=== PATIENT | female | born 1960 | race Caucasian/White ===

== ENCOUNTER 2020-08-11 07:28 | Outpatient (REF) | payer BC, SELFPAY ==
--- NOTE | ~2020-08-11 | MM_ITS ---
EXAMINATION: MM SCREENING DIGITAL BREAST TOMOSYNTHESIS, BILATERAL CLINICAL INFORMATION: Screening. Asymptomatic. The lifetime risk of breast cancer based on the Tyrer-Cuzick Model is 11%. COMPARISON: Mammography: 08/04/2019, 08/06/2018, 07/29/2018, 05/20/2017 TECHNIQUE: Digital breast tomosynthesis is performed in both the craniocaudal and mediolateral oblique views along with computer-aided detection (CAD). Synthesized 2D images are generated from the tomosynthesis. FINDINGS: There are scattered areas of fibroglandular density (ACR BI-RADS breast composition Category b). There is a nodular parenchymal pattern similar to prior exams. There is no developing density or interval mass or architectural abnormality. No abnormal calcifications the axilla and skin contours are unremarkable. MM/MM tomosynthesis screening BI IMPRESSION: No significant changes from prior studies. ASSESSMENT: BI-RADS 2: Benign RECOMMENDATION: Routine annual mammography screening. This patient's information was entered into a reminder system with a target due date for their next mammogram.
== END 2020-08-11 07:29 | disposition home or self-care (01) ==
LOC: HO.MAMMO 07:28
PROVIDERS: PCP Family Medicine; Visit Provider Internal Medicine
DX: Z12.31 Encounter for screening mammogram for malignant neoplasm of breast (principal)
CPT/HCPCS: 77063; 77067

== ENCOUNTER 2021-09-28 07:22 | Outpatient (REF) | payer BC, SELFPAY ==
--- NOTE | ~2021-09-28 | MM_ITS ---
EXAMINATION: MM SCREENING DIGITAL BREAST TOMOSYNTHESIS, BILATERAL CLINICAL INFORMATION: Screening. Asymptomatic. The lifetime risk of breast cancer based on the Tyrer-Cuzick Model is 10%. COMPARISON: Mammography: 08/11/2020, 08/04/2019, 08/06/2018, 07/29/2018 TECHNIQUE: Digital breast tomosynthesis is performed in both the craniocaudal and mediolateral oblique views along with computer-aided detection (CAD). Synthesized 2D images are generated from the tomosynthesis. FINDINGS: There are scattered areas of fibroglandular density (ACR BI-RADS breast composition Category b). Multinodular parenchymal pattern is similar to prior exam. There is no interval dominant nodule or significant mass or architectural abnormality. No abnormal calcifications. The axilla and skin contours are unremarkable. MM/MM tomosynthesis screening BI IMPRESSION: No mammographic evidence of malignancy. ASSESSMENT: BI-RADS 2: Benign RECOMMENDATION: Routine annual mammography screening. This patient's information was entered into a reminder system with a target due date for their next mammogram.
== END 2021-09-28 07:23 | disposition home or self-care (01) ==
LOC: HO.MAMMO 07:22
PROVIDERS: PCP Family Medicine; Visit Provider Family Medicine
DX: Z12.31 Encounter for screening mammogram for malignant neoplasm of breast (principal)
CPT/HCPCS: 77063; 77067

== ENCOUNTER 2022-10-04 07:28 | Outpatient (REF) | payer BC, SELFPAY ==
--- NOTE | ~2022-10-04 | MM_ITS ---
EXAMINATION: MM SCREENING DIGITAL BREAST TOMOSYNTHESIS, BILATERAL CLINICAL INFORMATION: Screening. Asymptomatic. The lifetime risk of breast cancer based on the Tyrer-Cuzick Model is 9.5%. COMPARISON: Mammography: 09/28/2021 and studies dating back to 11/07/2010. TECHNIQUE: Digital breast tomosynthesis is performed in both the craniocaudal and mediolateral oblique views along with computer-aided detection (CAD). Synthesized 2D images are generated from the tomosynthesis. FINDINGS: There are scattered areas of fibroglandular density (ACR BI-RADS breast composition Category b). There are no significant new masses, abnormal calcifications, or other abnormalities. There is waxing and waning of circumscribed densities bilaterally consistent with cysts as had been seen previously on ultrasound. MM/MM tomosynthesis screening BI IMPRESSION: No significant changes from prior exam. ASSESSMENT: BI-RADS 2: Benign RECOMMENDATION: Routine annual mammography screening. This patient's information was entered into a reminder system with a target due date for their next mammogram.
== END 2022-10-04 07:29 | disposition home or self-care (01) ==
LOC: HO.MAMMO 07:28
PROVIDERS: PCP Family Medicine; Referring Provider Nurse Practitioner Adult Health; Visit Provider Family Medicine
DX: Z12.31 Encounter for screening mammogram for malignant neoplasm of breast (principal)
CPT/HCPCS: 77063; 77067

== ENCOUNTER 2023-07-22 08:34 | Outpatient (AMB) | payer BC, SELFPAY ==
[2023-07-22 08:50] VITALS: BP 128/80; PULSE 66; O2SAT 98; BMI 35.5
--- NOTE | 2023-07-22 08:50 | AM.OFFWIN_ITS ---
Intake Vital Signs 3 07/22/23 08:50 Height 5 ft 1 in Weight 188 lb BMI 35.5 BP 128/80 Blood Pressure Location Lt brachial Position Sitting Pulse 66 Pulse Source Pulse Oximeter Pulse Oximetry (%) 98 Intake Visit Reasons: EST/rash on side of face([phone]) Patient Tobacco Use Status: Never used Tobacco Allergies No Known Allergies Allergy (Verified 07/22/23 08:50) Medication List - Last Reconciled 07/22/23 by Felicia Duncan MD budesonide-formoterol 80-4.5 mcg/actuation (Symbicort) 2 puffs inhalation BID levothyroxine mcg PO omeprazole 40 mg PO BID vedolizumab (Entyvio) 300 mg IV Q8W Do you need a note to return to daycare/school/sports/work: Yes HPI EST/rash on side of face([phone]) 2 HPI0 Details Patient is 62-year-old female came in today to be evaluated for rash right side of her nose Which started about 5-7 days ago patient is not sure Her eye is fine, there is no pain days no tearing there is no photophobia however she feels it is little bit spray drier than usual On examination patient has developed a shingles rash which is located over V1 branch of trigeminal nerve Explained to patient that it can involve her eye, she already have an eye doctor I would recommend to make the appointment and have a follow-up Meanwhile I am treating her with famciclovir for 7 days and prednisone 20 mg once a day for 5 days PFSH Social History Patient Tobacco Use Status: Never used Tobacco Review of Systems Const All systems reviewed & are unremarkable except as noted in HPI and below Physical Exam Vital Signs: Last Vital Signs Pulse 66 07/22/23 08:50 BP 128/80 07/22/23 08:50 Pulse Ox 98 07/22/23 08:50 BMI result Body Mass Index 35.5 Const General: no acute distress Orientation/consciousness: patient oriented x3 HEENT Head images: 2 1. Herpes zoster rash Eyes Other: Eye exam is normal Resp Effort & Inspection: normal respiratory effort and able to speak in complete sentences Auscultation: clear to auscultation bilaterally Cardio Other: S1 S2 Neuro General: patient oriented x3 Psych Mental Status: mental status grossly normal Assessment & Plan Assessment & Plan (1) Herpes zoster: Code(s): B02.9 - Zoster without complications Qualifiers: Herpes zoster complications: unspecified herpes zoster complication Qualified Code(s): B02.8 - Zoster with other complications Plan Patient is 62-year-old female came in today to be evaluated for rash right side of her nose Which started about 5-7 days ago patient is not sure Her eye is fine, there is no pain days no tearing there is no photophobia however she feels it is little bit spray drier than usual On examination patient has developed a shingles rash which is located over V1 branch of trigeminal nerve Explained to patient that it can involve her eye, she already have an eye doctor I would recommend to make the appointment and have a follow-up Meanwhile I am treating her with famciclovir for 7 days and prednisone 20 mg once a day for 5 days Medications: New 2 famciclovir 500 mg PO Q8H 21 tabs 0RF 7 days Changed 2 From prednisone 40 mg (2 x 20 mg) PO DAILY 5 tabs 0RF To prednisone 20 mg PO DAILY 5 tabs 0RF 5 days Coding Level of Care Code Est Pt Level 4 (02606) Diagnoses Herpes zoster with complication B02.8 Herpes zoster complications: unspecified herpes zoster complication
== END 2023-07-22 09:41 | disposition home or self-care (01) ==
PROVIDERS: PCP Family Medicine; Visit Provider Internal Medicine
DX: B02.8 Zoster with other complications (principal)
CPT/HCPCS: 99214

== ENCOUNTER 2023-10-17 07:27 | Outpatient (REF) | payer BC, SELFPAY ==
--- NOTE | ~2023-10-17 | MM_ITS ---
EXAMINATION: MM SCREENING DIGITAL BREAST TOMOSYNTHESIS, BILATERAL CLINICAL INFORMATION: Screening. Asymptomatic. COMPARISON: Mammography: This study is compared with prior exams dating back to 2017. TECHNIQUE: Digital breast tomosynthesis is performed in both the craniocaudal and mediolateral oblique views along with computer-aided detection (CAD). Synthesized 2D images are generated from the tomosynthesis. FINDINGS: There are scattered areas of fibroglandular density (ACR BI-RADS breast composition Category b). There are no significant masses, abnormal calcifications, or other abnormalities. There are 2 tiny calcified fibroadenomas in the left breast and one in the right breast. These are benign. MM/MM tomosynthesis screening BI IMPRESSION: No mammographic evidence of malignancy. ASSESSMENT: BI-RADS BI-RADS 2 - Benign Findings RECOMMENDATION: Routine annual mammography screening. 1 year F/U This examination should not preclude the clinical evaluation of a suspicious palpable abnormality. This patient's information was entered into a reminder system with a target due date for their next mammogram.
== END 2023-10-17 07:28 | disposition home or self-care (01) ==
LOC: HO.MAMMO 07:27
PROVIDERS: PCP Family Medicine; Visit Provider Family Medicine
DX: Z12.31 Encounter for screening mammogram for malignant neoplasm of breast (principal)
CPT/HCPCS: 77063; 77067

== ENCOUNTER → 2023-10-17 07:30 | Outpatient (BNV) | payer BC, SELFPAY | PROVIDERS: PCP Family Medicine; Visit Provider Radiology Diagnostic Radiology | DX: Z12.31 Encounter for screening mammogram for malignant neoplasm of breast (principal) | CPT/HCPCS: 77063; 77067 ==

== ENCOUNTER 2024-11-05 07:22 | Outpatient (REF) | payer MEDICARE, SELFPAY ==
--- OUTSIDE RECORDS SUMMARY | 2024-11-05 07:24 | XMS_ITS | Data Portability ---
Author Organization [facility], , [facility] Address [address] [place] [address] Assessment Encounter Date Assessment Date Assessment LastModified by Organization Details LastModified Time 09/26/2017 09/26/2017 Pt with dx of collagenous colitis; hx diarrhea. Referred by gastroenterolog ist. Other medical issues: few. Looking for help with diet- variety and to minimize symptoms. Had lost weight previously following [employer] diet; weight gain past year or 2- changes in diet with the current medical issue- regained the weight. Nutrition diagnosis: altered GI function r/t dx lymphocytic colitis (diarrhea) AEB pt's description of symptoms, especially if she consumes a higher fiber diet. [email or web address] Not available 09/26/2017 13:10:22 11/21/2017 11/21/2017 Recent colonoscopy: no colitis, has some diverticular disease. Diarrhea: about 3x/week. Per pt: a week ago had bad diarrhea for an hour or 2, then doesn't go again for 2-3 days (typical pattern for her). She is unable to pinpoint triggers; avoids raw veggies (might have occasional small salad). Quality of life impacted by bowel issues. Now has a referral for a second opinion at [facility] in [place]. Follows Low FODMAPs diet; avoids raw vegetables and the only fruit she eats is a banana most days. Eats mostly gluten free diet, but not 100%. Doesn't believe that gluten is her issue, though. There is a possibility that she does not digest fats well, and that could be contributing to the diarrhea; puts butter: on all veggies, baked potato; they grill meats, but some of it is higher fat; ate a hot dog the other day; 24 hours after having nachos with some sour cream she had diarrhea. Wonders if she has an allergy to nickel (per her brother in law, who is a pharmacist and researcher, she appears to have some of the symptoms of nickel allergy or overload) She plans to pursue testing for this. In the mean time, she plans to follow a stricter lower fat diet to see if fat avoidance helps in any way. msobil Not available 11/21/2017 13:14:19 Plan of Treatment Reminders Order Date Submit Date Provider Last Modified By Organization Details Last Modified Time Details Appointments None record ed. Lab None record ed. Referral None record ed. Procedures None record ed. Surgeries None record ed. Imaging None record ed. Medication Orders None record ed. Patient TargetsNo targets recorded. Patient Instructions Encounter Date Encounter Id Patient Instructions Last Modified By Organization Details Last Modified Time 09/26/2017 [id number] We discussed man y things today: - intro discussion about reducing inflammation; - lower fiber diet - other dietary approaches to managing symptoms: no caffeine, spicey foods, or high fat foods; limit fiber- cooked veg only. Fruit- you may do better with cooked fruits (i.e. canned). Avoid artificia sweeteners. Consider gluten and casein (dairy) free. Avoid sugar and fructose. Small frequent meals. [email or web address] Not available 09/26/2017 13:08:25 GOALS: - food an d symptoms diary; discuss findings with RD (email?) - omega 3 fish oil (Justin, Spectrum and [place] [employer] are all good brands) - speak with your PCP about supplements: your diet is low in calcium, may need to have Vit D levels checked; consider a multivitamin; consider calcium supplementation. Magnesium? - read/try to follow Low FODMAPs diet. Read The [employer] AID (anti-inflammator y diet) website for ideas. - consider getting a Low FODMAPs diet cookbook (Dummies and Idiot's editions available)- recipes may help increase variety. - granola and other bars: read labels for: fructose (honey or hfcs),, fiber (inulin or chicory root). - hydration (water) - do you have any indoor equipment like treadmill or eliptical? perhaps move your exercise indoors if you cannot exercise outdoors right now. follow up in about 5 weeks. msobil Not available 09/26/2017 13:11:11 11/21/2017 [id number] PLAN/GOALS: - limit dietary fats: reduce/eliminate butter; choose only lean proteins; blot oil off of sauteed veggies; avoid tortilla chips, hot dogs, etc. - continue food/symptoms journal - send RD any past lab results that you feel are pertinent. - continue with gluten free, lower fiber diet. follow up in approx 5-6 weeks. msobil Not available 11/21/2017 13:15:02 Reason for Referral None Reported. Results Created Date Observation Date Name Description Value Unit Range Abnormal Flag Note LastModifiedBy Organization Detail LastModifiedTime Result Notes None recorded. Problems Name Problem SNOMED Code Status Onset Date Resolution Date Notes Provider Name and Address Organization Details Recorded Time Collagenous colitis 31679424 Active Sonya Alonzo RDN, JOSÉ MIGUEL, [address], [address], [facility] 8 09:33:25 Problem Notes None recorded. Procedures Surgical History Date Name Laterality Status Provider Name and Address Organization Details Recorded Time 8 [place] - Colonoscopy completed Junior Lopez MD [address] [place] [address], [phone], [facility] 10/30/2017 08:33:08 6 T[place] - Colonoscopy completed Junior Lopez MD [address] [place] [address], [phone], [facility] 12/26/2015 08:59:36 6 Tassoni - EGD completed Junior Lopez MD [address] [place] [address], [phone], [facility] 12/26/2015 09:00:59 Imaging Results None recorded. Procedure Notes None recorded. Medical Equipment None Reported. Allergies No known drug allergies Medications Name Sig Start Date Stop Date Status Note LastModified by Organization Details LastModified Time ranitidine 300 mg tablet active Not Available Not Available Not Available prochlorperazine maleate 10 mg tablet active Not Available Not Available Not Available oxycodone-acetamin ophen 5 mg-325 mg tablet active Not Available Not Available Not Available Gentle Laxative (bisacodyl) 5 mg tablet,delayed release active Not Available Not Available Not Available budesonide DR - ER 3 mg capsule,delayed,ex tended release active Not Available Not Availab le Not Available Ventolin HFA 90 mcg/actuation aerosol inhaler active Not Available Not Availa ble Not Available Estrace 0.01% (0.1 mg/gram) vaginal cream active Not Available Not Available Not Available cyclobenzaprine 5 mg tablet active Not Available Not Available No t Available cholestyramine (with sugar) 4 gram powder for susp in a packet active Not Available Not Avail able Not Available diclofenac 1 % topical gel active Not Available Not Available Not Available GaviLyte-G 236 gram-22.74 gram-6.74 gram-5.86 gram oral solution active Not Available Not Availabl e Not Available PreviDent 5000 Enamel Protect 1.1 %-5 % dental paste active Not Available Not Carol ilable Not Available Vitals Date Recorded Body weight Body mass index (BMI) Body height Provider Name and Address Organization Details Last Updated DateTime 09/26/2017 57807.95 g 33 kg/m2 154.94 cm Althea Alonzo RDN, LDN, [facility] [address] [place] [address] 09/26/2017 09:40:33 Date Recorded Body height Provider Name an d Address Organization Details Last Updated DateTime 11/21/2017 154.94 cm Althea Alonzo RDN, LDN, [facility] [address] [place] [address] 11/21/2017 09:41:34 Social History None recorded. Functional Status None recorded. Mental Status None recorded. Family History Nothing Reported. Medical History No medical history recorded. Gynecological HistoryNo gynecological history recorded. Obstetrics History GPAL:G 0 P 0 0 0 0 Past Encounters Encounter ID Performer Location Encounter Start Date Encounter Closed Date Diagnosis/Indication Diagnosis SNOMED-CT Code Diagnosis ICD10 Code Diagnosis Note [id number] Junior Lopez MD [facility], [address] [address] 12/26/2015 07:21:26 12/26/2015 14:36:09 [id number] Althea Alonzo RDN, LDN, [facility] [address] 09/26/2017 09:11:39 09/30/2017 08:26:37 Collagenous colitis 62450118 K52.624 [id number] Junior Lopez MD [facility], [address] [address] 10/30/2017 07:11:21 10/30/2017 12:07:50 [id number] Althea Alonzo RDN, LDN, [facility] [address] 11/21/2017 09:18:58 12/03/2017 09:28:48 Collagenous colitis 92669533 K52.831 Health Concerns Section Related Observation LastModified by Organization Detai ls LastModified Time None Recorded Concern Status LastModified by Organization Details LastModified Time None Recorded Advance Directives Directive None Recorded Payers Encounter Date Sequence Insurance Name Policy Number Policy Parisi Covered Member ID Parisi Member ID Guarantor Name 12/26/2015 1 [place] [id number] Omari Leggett [id number] Berengere Tardif-Ablic ki 09/26/2017 1 [place] [id number] Omari Leggett [id number] Berengere Tardif-Ablic ki 10/30/2017 1 [place] [id number] Omari Leggett [id number] Berengere Tardif-Ablic ki 11/21/2017 1 [place] [id number] Omari Leggett [id number] Berengere Tardif-Ablic ki Notes Date Note Type Note Provider Name and Address Organization Details Recorded Time 09/26/2017 text/html Nutrition Encoun ter updatedReported bypatient.Patient HistoryPatient chief nutritional complaint: (lymphocytic colitis) Nutition/dietarySee scanned images for Diet Intake Summary (3 meals; plain food); Diet Experience/subjective : (it has been very difficult- I have to be careful when I eat- I don't know when the diarrhea will strike, and have to be careful when away from home.); Knowledge/Beliefs/Att itudes: (avoided breakfast this a.m. because I had the apt here.); food preferences: (salads, whole grains, raw fruits and vegetables. Feels she gained weight d/t not being able to have these foods) Recent Lab testsLab results reviewed with patient and target goals discussed (no labs abailable) Physical Activity habitsenjoys walking but unable to do this now because she might have diarrhea when away from home Althea Alonzo RDN, JOS[facility] MIGUEL, [address], [address], [facility] 09/26/2017 13:12:41 11/21/2017 text/html Nutrition Encoun ter updatedReported bypatient.Patient HistoryPatient chief nutritional complaint: (chronic diarrhea) Nutition/dietarySee scanned images for food diary (kept one but didn't bring with her today); Food Avoidance/Aversions: (spicey foods; alcohol; gluten) Althea Alonzo RDN, JOSÉ MIGUEL, [address], [address], [facility] 11/21/2017 13:16:08 OBGyn Episode No OBEpisode recorded.
== END 2024-11-05 07:23 | disposition home or self-care (01) ==
LOC: HO.MAMMO 07:22
PROVIDERS: PCP Family Medicine; Visit Provider Family Medicine
DX: Z12.31 Encounter for screening mammogram for malignant neoplasm of breast (principal)
CPT/HCPCS: 77063; 77067

== ENCOUNTER → 2024-11-05 07:30 | Outpatient (BNV) | payer MEDICARE, SELFPAY | PROVIDERS: PCP Family Medicine; Visit Provider Internal Medicine | DX: Z12.31 Encounter for screening mammogram for malignant neoplasm of breast (principal) | CPT/HCPCS: 77063; 77067 ==

== ENCOUNTER 2025-02-07 09:39 | Outpatient (REF) | payer MEDICARE, SELFPAY ==
[2025-02-07 14:53] LABS: Chlamydia pneumoniae PCR Not Detected (Not Detect.); Coronavirus 229E PCR Not Detected (Not Detect.); Coronavirus HKU1 PCR Not Detected (Not Detect.); Coronavirus NL63 PCR Not Detected (Not Detect.); Coronavirus OC43 PCR Not Detected (Not Detect.); RSV PCR Not Detected (Not Detect.); Rhino/Enterovirus PCR Detected (Not Detect.)
[2025-02-07 15:29] LABS: SARS-CoV-2 PCR Not Detected (Not Detect.)
[2025-02-07 15:30] LABS: Influenza A H1 PCR Not Detected (Not Detect.); Influenza A H1-2009 PCR Not Detected (Not Detect.); Influenza A H3 PCR Not Detected (Not Detect.)
== END 2025-02-07 09:40 | disposition home or self-care (01) ==
LOC: HO.LAB 09:39
PROVIDERS: PCP Family Medicine; Visit Provider Physician Assistant
DX: J06.9 Acute upper respiratory infection, unspecified (principal)
CPT/HCPCS: 87633; 99202

== ENCOUNTER 2025-02-07 09:39 | Outpatient (AMB) | payer MEDICARE, SELFPAY ==
--- OUTSIDE RECORDS SUMMARY | 2025-02-07 10:14 | XMS_ITS | Patient Health Record ---
[facility] Address [address] [place] [address] Care Team Providers Care Supervisor Blood Name Role Phone Tracy SHELL, Kb Primary Care Provider Unavail able Karrie Lees Unavailable [phone] Reason For Referral No Information Social History Tobacco Use: Social History Observation Description Date Details (start date - stop date) Never Smoker NA - NA Tobacco Use/Smoking Question Answer Notes Are you a: nonsmoker Additional Findings: Tobacco Non-User Current no n-smoker Alcohol Screen Question Answer Notes Did you have a drink containing alcohol in the p ast year? No Points 0 Interpretation Negative Tobacco use other than smoking: Question Answer Notes Are you an other tobacco user? No Plan Of Treatment Pending Test Test Name Order Date X ray : Foot, right 3V 04/28/2019 Insurance Providers Payer Name Payer Address Payer Phone Subscriber Number Group Number Insured Name Patient Relationship to Insured Coverage Start Date Coverage End Date [facility] [address] [place] [address] [phone] [id number] [place]patricia Omari Spouse - patient is the spouse of the insured 8 Medical (General) History Medical History History ICD Code Back,Hip,and Knee pain Measles Mumps Surgical History Surgery Date(Month/Year) tonsillectomy 1968 section 1996 D&C 1995
--- OUTSIDE RECORDS SUMMARY | 2025-02-07 10:14 | XMS_ITS | Clinical Summary ---
Author Organization 175 [facility] Address [address] [place] [address] Phone Care Team Providers Care Outsole Molder Name Role Phone Siddharth Ruiz MD Primary Care Provider [phone] Surgical History Surgery Date Site/Laterality Comments SECTION PROCEDURE: HISTORICAL DELIVERY TONSILLECTOMY PROCEDURE: HISTORICAL TONSILLECTOMY OTHER SURGICAL HISTORY PROCEDURE: ---- OTHER ----; COMMENT: laparoscopy for infertility eval COLONOSCOPY 11/06/09 PROCEDURE: HISTORICAL COLONOSCOPY; COMMENT: hemorrhoids; repeat in ten years OTHER SURGICAL HISTORY 2004 PROCEDURE: ---- OTHER ----; COMMENT: rosales allen ESOPHAGOGASTRODUODENOSCOPY 05/14/13 PROCEDURE: [place] ESOPHAGOGASTRODUODENOSCOPY TRANSORAL DIAGNOSTIC; COMMENT: normal, with normal duodenal biopsies Medical History Medical History Date Comments NUD (nonulcer dyspepsia) 08/16/2013 DX:NUD (nonulcer dyspepsia) Seasonal allergies 06/15/2012 DX:Seasonal a llergies Palpitations 03/25/2009 DX:Palpitations; COMMENT: Dr. Garrido; propranolol; pt sts SVT. Propranolol had been very helpful. Osteopenia 11/20/2011 DX:Osteopenia; C OMMENT: 11/01; minimal (spine and hip normal, fem neck -1.4) Obesity (BMI 30.0-34.9) 03/31/2009 DX:Obesi ty (BMI 30.0-34.9) Lymphocytic colitis 01/03/2016 DX:Lymphocyt ic colitis; COMMENT: [place] 01/05. Gluten and lactose intolerance as well. GI in [place] Impaired fasting glucose 04/18/2016 DX:Impa ired fasting glucose IBS (irritable bowel syndrome) 03/31/2009 D X:IBS (irritable bowel syndrome); COMMENT: EGD benign 05/05 Hematuria 03/25/2009 DX:Hematuria; CO MMENT: [facility] - Dr Perez; cystoscopy normal; cytology x3 normal; CT normal; they are following pt Dyspnea 10/14/2010 DX:Dyspnea; COMM ENT: PFT 10/01: Mild obs defect with reversibility; Dr Xavier Family History Medical History Relation Name Comments Colon cancer Aunt >50 Coronary artery disease Brother Coronary artery disease Father Prostate cancer Father Coronary artery disease Mother silvano y age Hypertension Mother Thyroid disease Mother Pancreatic cancer Uncle 1 Colon cancer Uncle 2 >50 Diabetes Neg Hx Relation Name Status Comments Aunt Brother Father Mother Uncle 1 Uncle 2 Social History Tobacco Use Types Packs/Day Years Used Date Smoking Tobacco: Never Smokeless Tobacco: Never Alcohol Use Standard Drinks/Week Comments Yes 0 (1 standard drink = 0.6 oz pur e alcohol) Comments Unknown Sex and Gender Information Value Date Recorded Sex Assigned at Not on file Legal Sex Female 7:55 AM EST Gender Identity Not on file Sexual Orientation Not on file Obstetrics History Plan of Treatment Upcoming Encounters Date Type Department Care Team ([facility] st Contact Info) Description 03/31/2025 8:45 AM EDT Office Visit Orthopedic Surgery - [place] [address] [id number] Roberth Almanzar, DPM [address] [address] Health Maintenance Due Date Last Done Comments Breast Cancer Screening 1960 Cervical Cancer Screening: Pap Smear 08/20/1980 Pneumococcal Vaccine: 50+ Years (1 of 1 - PCV) 08/20/2009 Zoster Vaccines (1 of 2) 08/20/2009 DTaP,Tdap,and Td Vaccines (2 - Td or Tdap) 01/09/2020 01/08/2010 COVID-19 Vaccine (1 - season) 2024 Depression Screening 06/23/2024 Colorectal Cancer Screening: Colonoscopy 01/25/2025 Falls Risk Assessment 01/25/2025 Hepatitis C Screening 01/25/2025 Medicare Annual Wellness Visit 01/25/2025 Osteoporosis Screening (Bone Density Screening) 01/25/2025 Social Influencers of Health Screening 01/25/2025 Influenza Vaccine (#1) 2025 8, 05/24/2017, 04/08/2016, Additional history exists RSV Immunization Adult Patients (1 - 1-dose 75+ series) 08/20/2034 HIB Vaccines Aged Out No longer eligi ble based on patient's age to complete this topic HPV Vaccines Aged Out No longer eligi ble based on patient's age to complete this topic Hepatitis A Vaccines Aged Out No long er eligible based on patient's age to complete this topic Hepatitis B Vaccines Aged Out No long er eligible based on patient's age to complete this topic IPV Vaccines Aged Out No longer eligi ble based on patient's age to complete this topic MMR Vaccines Aged Out No longer eligi ble based on patient's age to complete this topic Meningococcal ACWY Vaccine Aged Out N o longer eligible based on patient's age to complete this topic Meningococcal B Vaccine Aged Out No l onger eligible based on patient's age to complete this topic RSV Immunization Patients Under 20 months Aged Out No longer eligible based on patient's age to complete this topic Varicella Vaccines Aged Out No longer eligible based on patient's age to complete this topic Insurance BLUE CROSS - [place]IC[place]ANT[place] Care Teams Outsole Molder Relationship Specialty Start Date End Date Siddharth Ruiz MD [facility] [address] [place] [address] PCP - General Family Medicine 01/25/25
--- OUTSIDE RECORDS SUMMARY | 2025-02-07 10:14 | XMS_ITS | Clinical Summary ---
Author Organization [facility] Address [address] [facility] [address] [place] [address] Phone Care Team Providers Care Senior Scientist Name Role Phone Kb Molina MD Unavailable [phone] Siddharth Ruiz MD Primary Care Provider + Maria E Perez MD Unavailable [phone] Allergies No known active allergies Medications ALBUTEROL INHL Inhale into the lungs as needed. Active fluticasone propionate (FLONASE) 50 mcg/actuation nasal spray 1 spray by Nasal route daily as needed. Active levothyroxine (SYNTHROID, LEVOTHROID) 50 MCG tablet Take 75 mcg by mouth every morning. Active omeprazole (PRILOSEC) 40 MG capsule 2 (two) times a day. 3 Active vedolizumab (ENTYVIO) 300 mg SolR injection See Instructions, 300 mg IV Infusion Every 4 weeks, 0 Refills, Maintenance, 04/10/22 10:10:00 EDT, Partial fill upon patient request if the prescription is for a schedule II opioid drug. 2 Active hyoscyamine (LEVSIN SL) 0.[address] 1 tablet (0.125 mg total) under the tongue every 4 (four) hours as needed for cramping (specific location in comments). 30 tablet 1 5 Active cholecalcifero l (VITAMIN D3) 4,000 unit tablet Take by mouth daily. Active ergocalciferol (DRISDOL) 50,000 unit capsule Take 1 capsule by mouth once a week. 4 025 Discontin ued(No longer taking) Active Problems Problem Noted Date Diagnosed Date Microscopic colitis 03/01/2021 Motion sickness 01/08/2021 PONV (postoperative nausea and vomiting) 021 GERD (gastroesophageal reflux disease) 1 Encounters Date Type Department Care Team Description 02/02/[address] [facility] [address] [address] Connie Voss, RACHEL Labs 01/28/2025 9:[address] [facility] [address] [address] Earlene Pacheco PA-C Microscopic colitis, unspecified microscopic colitis type (Primary Dx); Vitamin D deficiency, unspecified; Fatigue, unspecified type 01/20/[address] [facility] [address] [address] Shelbi Mendes RN 01/03/[address] [facility] [address] [address] Connie Voss, RN Labs from Last 3 Months Immunizations Immunization Administration Dates Next Due COVID-19 (Pre-04/14) Pfizer Vaccine, mRNA, PF Social History Tobacco Use Types Packs/Day Years Used Date Smoking Tobacco: Never Smokeless Tobacco: Never Alcohol Use Standard Drinks/Week Comments Yes 0 (1 standard drink = 0.6 oz pur e alcohol) Education Answer Date Recorded Are you interested in more education? Not on farhad e 10/18/2022 Are you concerned about learning? Not on file 10/18/2022 No 10/18/2022 No 10/18/2022 Digital Access Answer Date Recorded No 11/18/2022 No 11/18/2022 Reliable internet access at home? Not on file 11/18/2022 Device with a working camera? Not on file Intimate Partner Violence Answer Date R ecorded Are you denied basic needs s uch as food, clothing, or medical care? No 04/21/2023 In the past 12 months have y ou been in a relationship with a person who hurts, threatens, or tries to control you? No 04/21/2023 Are you denied basic needs s uch as food, clothing, or medical care? No 04/21/2023 In the past 12 months have y ou been in a relationship with a person who hurts, threatens, or tries to control you? No 04/21/2023 Comments No Sex and Gender Information Value Date Recorded Sex Assigned at Female 01/19/2021 11:43 AM EDT Legal Sex Female 9:49 PM EDT Gender Identity Female 01/19/2021 11:43 AM EDT Sexual Orientation Straight 01/19/2021 11 :43 AM EDT Last Filed Vital Signs Vital Sign Reading Time Taken Comments Blood Pressure 149/84 09/20/2024 10:06 AM EDT Pulse 70 09/20/2024 10:06 AM EDT Temperature 36.6 C (97.9 F) 09/20/2024 10:06 AM EDT Respiratory Rate 14 04/21/2023 12:30 PM EDT Oxygen Saturation 97% 09/20/2024 10:06 AM EDT Inhaled Oxygen Concentration - - Weight 89 kg (196 lb 1.6 oz) 09/20/2024 10:06 AM EDT Height 154.9 cm (5' 1 ) 04/21/2023 10:48 AM EDT Body Mass Index 37.05 04/21/2023 10:48 AM EDT Plan of Treatment Upcoming Encounters Date Type Department Care Team (Late st Contact Info) Description 06/09/2025 8:[address] [facility] [address] [facility] 9th [place] [address] Luis Carlos Berrios, CRISTEL, MPH [address] [address] [email or web address] Health Maintenance Due Date Last Done Comments LIPID PANEL 1960 TSH LEVEL 1960 DEPRESSION SCREENING 1971 HEPATITIS C SCREENING 08/20/1977 HIV ONE-TIME SCREENING (18-65 YEARS) 08/20/1977 MAMMOGRAM 1999 COLOGUARD 2004 FIT TEST 2004 FOBT 2004 SIGMOIDOSCOPY 2004 VIRTUAL COLONOSCOPY 2004 RSV VACCINE (1 - Risk 60-74 years 1-dose series) 2019 ZOSTER VACCINES (2 of 2) 07/28/2020 06/02/2020, 05/23 PNEUMOCOCCAL VACCINES (50+ years) (2 of 2 - PCV) 02/28/2021 02/29/2020 COVID-19 VACCINE (5 - 2023- season) 2024 06/06/2021, 05/05/2021, 08/11/2020, Additional history exists OSTEOPOROSIS SCREENING INITIAL (ONE-TIME) 08/20/2024 SCREENING FOR DIABETES 07/09/2027 , 04/28/2024, 01/23/2024, Additional history exists Adult Td,Tdap Booster 04/10/2032 04/10/2022, 010 COLONOSCOPY 04/21/2033 04/21/2023, 01/08/2021 COLORECTAL CANCER SCREENING 04/21/2033 SMOKING STATUS SCREENING (Once After 26 Yrs) Completed 01/28/2025 HEPATITIS A VACCINES Aged Out No long er eligible based on patient's age to complete this topic HIB VACCINES Aged Out No longer eligi ble based on patient's age to complete this topic MENINGOCOCCAL VACCINES (ACWY) Aged Out No longer eligible based on patient's age to complete this topic MENINGOCOCCAL VACCINES (B) Aged Out N o longer eligible based on patient's age to complete this topic Medical Devices Not on file Procedures Procedure Name Priority Date/Time Associated Diagnosis Comments OUTSIDE LAB 01/10/2025 OUTSIDE LAB 01/03/2025 OUTSIDE LAB 12/31/2024 EXTERNALLY RESULTED RHEUMATOLOGY LABS Routine 12/27/2024 EXTERNALLY RESULTED CHEMISTRY Routine 12/27/2024 EXTERNALLY RESULTED HEMATOLOGY Routine 12/27/2024 OUTSIDE GLUCOSE FASTING Routine 07/09/2024 ENDOSCOPY, COLON 04/21/2023 11:4 6 AM EDT from Last 3 Months or Most Recently Relevant to Health Maintenance Results * Outside Lab (01/10/2025) Only the most recent of3 resultswithin the time period is included. us Scanning Interface Provider LAB BLOOD ORDERABLES Final Result * EXTERNALLY RESULTED HEMATOLOGY (12/27/2024) [facility] WBC - External 6.6 3.4 - 10.8 x10E3/uL Comment:Done At [facility] RBC - External 4.57 3.77 - 5.28 x10E6/uL Comment:Done At [facility] HCT - External 42.9 34.0 - 46.6 % Comment:Done At [facility] HGB - External 14.1 11.1 - 15.9 g/dL Comment:Done At [facility] Platelets - External 258 150 - 450 x10E3/uL Comment:[facility] MCV - External 94 79 - 97 fL Comment:Done At [facility] RDW - External 12.3 11.7 - 15.4 % Comment:[facility] Eosinophils - External Neutrophils - External WBC (manual) - External PT-INR (manual) - External) PTT - External Fibrinogen - External Fibrinogen (manual) - External Hemoglobin Electrophoresis - External Hemoglobin A1c - External Absolute Lymphocytes - External PTT - External Protime - External MONO ABS - EXTERNAL BASOS ABS - EXTERNAL Immature Gran - External 12/27/2024 us Historical Provider LAB BLOOD ORDERABLES Phuong l Result * (ABNORMAL) EXTERNALLY RESULTED CHEMISTRY (12/27/2024) [facility] Sodium - External 143 134 - 144 mmol/L Comment:Done [facility] Potassium - External Chloride - External 106 96 - 106 mmol/L Comment:Done At [facility] CO2 - External 15(A) 20 - 29 mmol/L Comment:[facility] BUN - External 19 8 - 27 mg/dL Comment:Done At [facility] Creatinine, serum - External 0.83 0.57 - 1.00 mg/dL Comment:Done At [facility] BUN/Creatinine - External eGFR - External Glucose - External Calcium - External 9.3 8.7 - 10.3 mg/dL Comment:Done At [facility] Phosphorus - External Magnesium - External Albumin - External 4.2 3.9 - 4.9 g/dL Comment:Done At [facility] Bilirubin, total - External 0.2 0.0 - 1.2 mg/dL Comment:Done At [facility] Bilirubin, direct - External Bilirubin (conjugated) - External Bilirubin, indirect - External Protein - External 6.8 6.0 - 8.5 g/dL Comment:Done At [facility] Alkaline Phosphatase - External 100 44 - 121 IU/L Comment:Done At [facility] AST - External 23 0 - 40 IU/L Comment:Done At [facility] ALT - External 21 0 - 32 IU/L Comment:Done At [facility] Amylase - External Lipase (u/L) - External Cholesterol, total - External LDL - External Triglycerides - External HDL - External TIBC - External Iron - External Ferritin - External Folate - External Vitamin B12 - External CK - External Cotinine - External C-peptide (ng/mL) - External C-peptide (pmol/L) - External HCG, qualitative - External HCG, total - External NT-proBNP - External PTH - External TSH - External T3 - External Total T4 - External Free T4 - External Vitamin D 25(OH) - External AFP (Tumor Marker) - External Uric Acid - External PSA - External GGT - External Lactate, dehydrogenase - External Ammonia - External Vitamin A - External Alk phos: Intestinal Isoenzymes - External Alk phos: Bone Isoenzymes - External Alk phos: Liver Isoenzymes - External Alk phos: Placental Isoenzymes - External Alk phos: Macrohepatic Isoenzymes - External Cystatin C - External 12/27/2024 us Historical Provider LAB BLOOD ORDERABLES Phuong l Result * EXTERNALLY RESULTED RHEUMATOLOGY LABS (12/27/2024) DORY (qualitative) - External DORY (pattern) - External DORY (titer) - External dsDNA (anti-DNA) - External Ro/SSA (Sjogren's Anti-SSA) - External SSA (Ro) antibody - External SSA (Ro) Interpretation - External SSA (La) antibody - External SSA (La) Interpretation - External Anti-Ro52 - External Anti-Ro60 - External La/SSB (Sjogren's anti-SSB) - External SSB (La) antibody - External SSB (La) Interpretation - External Sm (anti-Rodriguez) antibody - External Sm antibody (Anti-Rodriguez) Interpretation - External SHORTAGE WORKER (anti-SHORTAGE WORKER) - External SHORTAGE WORKER antibody (Anti-SHORTAGE WORKER) Interpretation - External SCL-70 (Wkaw-lrugeregfqv-8 0) - External SCL-70 (Ocpr-nristzearmh-4 0) Interpretation - External RNA Polymerase 3 - External Anti-Centromere antibody - External Anti-Ariana-1 - External ANCA - External Anti-MPO - External Anti-PR3 - External Rheumatoid Factor - External Anti-CCP (Cyclic Citrullinated Peptide) - External HLA-B27 - External ESR - External 38 0 - 40 mm/hr Comment:[facility] CRP (mg/dL) - External CRP (mg/L) - External 9 0 - 10 mg/L Comment:Done At [facility] R[facility] arreaga 12/27/2024 Historical Provider LAB BLOOD ORDERABLES Phuong l Result * (ABNORMAL) Outside Glucose,Fasting (07/09/2024) Glucose, fasting - External 119(A) 70 - 99 mg/dL Comment:Done At [facility] us Historical Provider LAB BLOOD ORDERABLES Phuong l Result * ENDOSCOPY, COLON (04/21/2023 11:46 AM EDT) 04/21/2023 11:4 6 AM EDT Narrative Transcriptions Luis Carlos Berrios MBBS, MPH - 04/21/2023 11:46 AM EDT GI Patient Name: Tomas Christy Exam Date: 04/21/2023 11:46 AM Date of : 1960 Gender: Female Note Status: Finalized Procedure: Colonoscopy Indications: Microscopic colitis Providers: Luis Carlos Berrios MD Referring MD: Lexie Dotson (Referring MD) Medicines: Monitored Anesthesia Care Complications: No immediate complications. Procedure: After obtaining informed consent, the endoscope was passed under direct vision. Throughout the procedure, the patient's blood pressure, pulse, and oxygen saturations were monitored continuously. The Colonoscope was introduced through the anus and advanced to the the terminal ileum. The colonoscopy was performed without difficulty. The patient tolerated the procedure well. The quality of the bowel preparation was excellent. Findings: The perianal and digital rectal examinations were normal. The colon (entire examined portion) appeared normal. Biopsies were taken with a cold forceps for histology. Internal hemorrhoids were found during retroflexion. The hemorrhoids were medium-sized. The terminal ileum appeared normal. Biopsies were taken with a cold forceps for histology. Impression: - The entire examined colon is normal. Biopsied. - Internal hemorrhoids. - The examined portion of the ileum was normal. Biopsied. Recommendation: - Await pathology results. Attending Participation: I was personally present throughout the entire procedure. Anesthesia administered medication. Luis Carlos Berrios MD, [id number] 04/21/2023 12:21:03 PM Number of Addenda: 0 Note Initiated On: 04/21/2023 11:46 AM [facility] DOWEL POINTER GI PROCEDURE ORDERABLES Phuong l Result from Last 3 Months or Most Recently Relevant to Health Maintenance Insurance BL[place]ICARE [place] [address] [place] [address] [address] [address] [place] [address] MED[place]ARE [address] [address] [place] [address] MEDICARE PPO BLUE REPLACEMENT MEDICARE P[place] [address] [place] [address] MEDICARE PPO BLUE REPLACEMENT Care Teams Senior Scientist Relationship Specialty Start Date End Date Siddharth Ruiz MD [address] [place] [id number] PCP - General Family Medicine 09/26/20 Kb Molina MD [address] [place] [id number] Internal Medicine 07/03/18 Maria E Perez MD [address] [place] [id number] Surgeon Urology 04/07/24 Additional Source Comments The information contained in this document represents components of the legal health record. It is not the complete legal health record.[facility]
[2025-02-07 10:42] VITALS: BP 130/74; PULSE 82; TEMP 36.6; O2SAT 95; BMI 36.3
--- NOTE | 2025-02-07 10:42 | MHC.OFFWIV ---
Intake Vital Signs 02/07/25 10:42 Height 5 ft 1 in Weight 192 lb BMI 36.3 BP 130/74 Blood Pressure Location Lt brachial Pulse 82 Pulse Source Pulse Oximeter Temp 97.9 F Temp Source Oral Pulse Oximetry (%) 95 Intake Visit Reasons: EP cough, congestion 3 wks (car [phone]) Intake Note: presents with chest congestion and productive cough x3 weeks Patient Tobacco Use Status: Never used Tobacco Allergies No Known Allergies Allergy (Verified 02/07/25 10:50) Do you need a note to return to daycare/school/sports/work: No HPI HPI Comments History of Present Illness Details History - The patient is a 64-year-old female presenting with symptoms of an upper respiratory infection. - Symptoms began three weeks ago post-vacation, initially improving then worsening, with productive cough and congestion and sinus pain. - Reports significant fatigue and occasional shortness of breath, although she says that was present prior to the URI, with no asthma or COPD history. - History of using an inhaler for allergies and postnasal drip, with limited relief from Mucinex. - Has irritable bowel syndrome and colitis, worse with abx like Augmentin - Denies ear pain, fevers Physical Exam General: Cooperative, healthy appearing, comfortable and no acute distress Orientation/consciousness: Patient oriented x3 Limitations: No limitations Head: Normal to inspection Ears: Hearing grossly normal bilaterally, external ears normal and TM's normal bilaterally Nose: Normal external nose present, Normal nares present and No nasal discharge present Face and sinus: Normal facial exam and Sinuses slightly tender Mouth: Normal oral and palatal mucosa present and moist mucous membranes Throat: Yes tonsils normal, Yes uvula midline. Posterior oropharynx erythema, no exudates Eyes: Appearance normal, both eyes and all related structures Neck: Normal visual inspection, full ROM Respiratory: Clear to auscultation bilaterally. Normal respiratory effort, able to speak in complete sentences, Actively coughing, no respiratory distress, not tachypneic, no tripod positioning and no use of accessory muscles Cardiovascular: Regular rate and rhythm. Normal S1 and S2 Skin: No rashes or lesions noted Neuro: Patient oriented x3 Extremities: Normal to inspection and Yes no clubbing, cyanosis or edema PFSH Social History Patient Tobacco Use Status: Never used Tobacco Review of Systems Const All systems reviewed & are unremarkable except as noted in HPI and below Physical Exam Vital Signs: Last Vital Signs Temp 97.9 F 02/07/25 10:42 Pulse 82 02/07/25 10:42 BP 130/74 02/07/25 10:42 Pulse Ox 95 02/07/25 10:42 BMI result Body Mass Index 36.3 Assessment & Plan Assessment & Plan (1) URI, acute: Code(s): J06.9 - Acute upper respiratory infection, unspecified Plan: Plan - VSS, pt well appearing and PE remarkable for sinus tenderness. - A respiratory pathogen panel was ordered to identify potential viral causes. - If the panel is negative, a Z-Gama azithromycin will be prescribed due to the patient's history of irritable bowel syndrome and colitis. - The patient was advised to follow up with her primary care physician if symptoms persist, especially the shortness of breath. Patient was informed and verbally consented to the use of an ambient scribe for clinic note documentation during this visit Orders: Orders Resp Pathogen Panel - [facility] Today J06.9 - Acute upper respiratory infection, unspecified Coding Level of Care Code New Pt Level 3 (48309) Diagnoses URI, acute J06.9
== END 2025-02-07 11:33 | disposition home or self-care (01) ==
PROVIDERS: PCP Family Medicine; Visit Provider Physician Assistant
DX: J06.9 Acute upper respiratory infection, unspecified (principal)